=== PATIENT | female | born 1955 | race Caucasian/White ===

== ENCOUNTER → 2018-02-03 | Outpatient (CLI) | payer OTHER | LOC: FIMAGING 15:16 | PROVIDERS: ATTEND Orthopaedic Surgery | DX: Z01.818 Encounter for other preprocedural examination (principal); M17.12 Unilateral primary osteoarthritis, left knee; M25.461 Effusion, right knee ==

== ENCOUNTER 2018-02-10 07:54 | Observation (INO) | payer OTHER ==
[~2018-02-10 07:54] MED LIST: BUPI/epINEPH/KETOROLAC IU ONE; ROPIVACAINE 0.2% 80 MG, EPINEPHrine 0.2 MG, KETOROLAC TROMETHAMINE 30 MG in SYRINGE 0 ML IU ONE; TRANEXAMIC ACID 3,000 MG in NS (SYRINGE) 50 ML IRR ONE
[2018-02-10] MEDS ORDERED: TRANEXAMIC ACID 3,000 MG/50 ML BAG IRR ONE (08:05)
--- NOTE | 2018-02-10 08:16 | PDHPUP ---
History & Physical Update H&P update statement: This history and physical update is based on an assessment of the patient which was completed after admission or registration (within 24 hours), but prior to the surgery/procedure. H&P update: H&P reviewed & patient examined, no change in patient's condition since H&P completed
[2018-02-10] MEDS ORDERED: DEXAMETHASONE 4 MG/ML VIAL IVP ONE (08:35)
[2018-02-10] MEDS ORDERED: FAMOTIDINE 20 MG TAB PO ONE (08:35)
[2018-02-10] MEDS ORDERED: ACETAMINOPHEN 325 MG TAB PO ONE (08:35)
[2018-02-10] MEDS ORDERED: ceFAZolin 2 GM/SWFI 2 GM/20 ML SYR IVP ONE (08:35)
[2018-02-10] MEDS ORDERED: LIDOCAINE 1% 2 ML INJ ID PRN (08:36)
[2018-02-10] MEDS ORDERED: LR 1,000 ML IV ONE (08:36)
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
[2018-02-10] MEDS ORDERED: MIDAZOLAM 2 MG/2 ML VIAL ONE (10:05)
[2018-02-10] MEDS ORDERED: MIDAZOLAM 2 MG/2 ML VIAL IVP ONE (10:10)
[2018-02-10] MEDS ORDERED: VANCOMYCIN 1 GM VIAL ONE (10:13)
[2018-02-10] MEDS ORDERED: PROPOFOL/EMULSION 500 MG/50 ML BOTTLE IV ONE ×2 (10:14→10:51)
[2018-02-10] MEDS ORDERED: fentaNYL 100 MCG/2 ML INJ ONE (10:43)
[2018-02-10] MEDS ORDERED: ONDANSETRON 4 MG/2 ML VIAL IVP PRN ×2 (11:01→11:36)
[2018-02-10] MEDS ORDERED: fentaNYL 100 MCG/2 ML INJ IVP PRN (11:01)
[2018-02-10] MEDS ORDERED: oxyCODONE IR 5 MG TAB PO PRN ×2 (11:01→11:36)
[2018-02-10] MEDS ORDERED: PROMETHAZINE HCL 25 MG/ML INJ IVP PRN ×2 (11:01→11:36)
[2018-02-10] MEDS ORDERED: LABETALOL HCL 5 MG/ML 20 ML MDV IVP PRN (11:01)
[2018-02-10] MEDS ORDERED: PHENYLEPHRINE HCL 100 MCG/ML SYR IVP PRN (11:01)
[2018-02-10] MEDS ORDERED: HYDROmorphONE/DILAUDID 1 MG/ML INJ IVP PRN (11:01)
[2018-02-10] MEDS ORDERED: ACETAMINOPHEN 500 MG TAB PO PRN (11:01)
[2018-02-10] MEDS ORDERED: NALOXONE HCL 0.4 MG/ML INJ IVP PRN (11:01)
[2018-02-10] MEDS ORDERED: LR 500 ML IV PRN (11:01)
[2018-02-10] MEDS ORDERED: ROPIVACAINE HCL 150 MG/30 ML INJ ONE (11:03)
[2018-02-10] MEDS ORDERED: ONDANSETRON 4 MG/2 ML VIAL ONE (11:03)
[2018-02-10] MEDS ORDERED: CYCLOBENZAPRINE 10 MG TAB PO PRN (11:36)
[2018-02-10] MEDS ORDERED: LACTULOSE 20 GM/30 ML UDCUP PO PRN (11:36)
[2018-02-10] MEDS ORDERED: METOCLOPRAMIDE 10 MG/2 ML VIAL IVP PRN (11:36)
[2018-02-10] MEDS ORDERED: PROMETHAZINE HCL 25 MG SUPPR PR PRN (11:36)
[2018-02-10] MEDS ORDERED: ONDANSETRON DISINTEGRATING 4 MG TAB PO PRN (11:36)
[2018-02-10] MEDS ORDERED: TEMAZEPAM 15 MG CAP PO PRN (11:36)
[2018-02-10] MEDS ORDERED: MAGNESIUM HYDROXIDE 30 ML UDCUP PO PRN (11:36)
[2018-02-10] MEDS ORDERED: BISACODYL 10 MG SUPP PR PRN (11:36)
[2018-02-10] MEDS ORDERED: DIPHENOXYLATE/ATROPINE LOMOTIL 1 TAB PO PRN (11:36)
[2018-02-10] MEDS ORDERED: diphenhydrAMINE 25 MG CAP PO PRN (11:36)
[2018-02-10] MEDS ORDERED: POLYETHYLENE GLYCOL 3350 17 GM PKT PO PRN (11:36)
--- NOTE | 2018-02-10 11:36 | POSTOPPROG ---
Post Op Note Date of Operation: 02/10/18 Surgeon: Cezar Solano Land Commissioner: irish solano Anesthesiologist: dr. denney Anesthesia: Spinal, Other (Specify) (adductor canal block) Pre-op Diagnosis: right knee medial OA Post-op Diagnosis: same Indication: right knee pain Procedure: R med mPL Findings: severe medial knee OA Inf/Abcess present in the surg proc area at time of surgery?: No EBL: 50-100
[2018-02-10] MEDS ORDERED: LR 1,000 ML IV SCH (12:00)
[2018-02-10] MEDS ORDERED: ACETAMINOPHEN 500 MG TAB ONE (12:27)
[2018-02-10] MEDS ORDERED: ceFAZolin 2 GM/DEXTROSE 100 ML IV SCH (14:00)
[2018-02-10] MEDS: ACETAMINOPHEN 325 MG TAB PO SCH ×3 (16:17→23:53)
--- NOTE | 2018-02-10 16:35 | POSTANESTH ---
Post Anesthetic Evaluation Cardiovascular Status: Normal, Stable, Similar to Pre-Op Cond Respiratory Status: Normal, Stable, Similar to Pre-op Cond. Level of Consciousness/Mental Status: Can Participate in Eval, Alert and Oriented Pain Control: Adequate, Prn Tx Ordered Nausea/Vomiting Control: Adequate, Prn Tx Ordered Complications Possibly Related to Anesthesia: None Noted
[2018-02-10] MEDS: ceFAZolin 2 GM/SWFI 2 GM/20 ML SYR IVP SCH (17:07)
[2018-02-10 19:54] VITALS: RESP 16
[2018-02-10] MEDS: ASPIRIN 81 MG CHEWABLE TAB PO SCH (20:44)
[2018-02-10] MEDS: SENNOSIDES/DOCUSATE SODIUM TAB PO SCH (20:44)
[2018-02-10] MEDS: FAMOTIDINE 20 MG TAB PO SCH (20:44)
[2018-02-11] MEDS: ceFAZolin 2 GM/SWFI 2 GM/20 ML SYR IVP SCH (02:44)
[2018-02-11] MEDS: ACETAMINOPHEN 325 MG TAB PO SCH (05:06)
[2018-02-11 07:27] VITALS: BP 128/64; PULSE 68; TEMP 98; O2SAT 96
[2018-02-11] MEDS: ASPIRIN 81 MG CHEWABLE TAB PO SCH (07:48)
[2018-02-11] MEDS: FAMOTIDINE 20 MG TAB PO SCH (07:48)
[2018-02-11] MEDS: SENNOSIDES/DOCUSATE SODIUM TAB PO SCH (07:49)
--- NOTE | 2018-02-11 14:11 | GOP ---
[f rep st] OPERATIVE REPORT DATE OF OPERATION: 02/10/2018 SURGEON: Kathy Ponce MD MASK FORMER: JUAN Jnoes ANESTHESIA: Spinal. PREOPERATIVE DIAGNOSIS: Right knee osteoarthritis. POSTOPERATIVE DIAGNOSIS: Right knee osteoarthritis. PROCEDURE PERFORMED: right medial compartment partial knee replacement with computer navigation and robotic assist. FINDINGS: severe medial OA INDICATIONS: This is a 62-year-old female with progressive pain of the right knee unresponsive to conservative care. Risks and benefits of surgical intervention were explained in detail. DESCRIPTION OF PROCEDURE: The patient was brought to the operating room and placed on the table in supine position. Spinal anesthesia was induced without difficulty. A pneumatic tourniquet was applied about the right proximal thigh and the leg was prepped and draped in sterile fashion. Attention was turned first to the distal aspect of the right femur. At 3 cm proximal to the lateral rise of the femur, 2 percutaneous half pins were placed for fixation of the femoral array. In a similar fashion, 2 pins were placed anterolateral on the tibia for fixation of the tibial array. External land marking and registration of the hip center was performed without difficulty. After exsanguination by elevation, the tourniquet was inflated to 250 mmHg. Incision was made from the tibial tuberosity to the superior pole of the patella. Dissection was carried out through the subcutaneous tissue to the deep fascia using Bovie electrocautery for hemostasis. Medial parapatellar arthrotomy was carried out to the superior pole of the patella. The medial collateral ligament was elevated and the infrapatellar fat pad was resected. Internal femoral and tibial registration was carried out without difficulty and the femoral and tibial checkpoints were placed and verified for accuracy. Attention was turned to the femur. The foot print for the size 5 femoral component was cut with the 6 mm bur using the [employer] robotic system and verified for accuracy against the CT based plan. The hole was cut for the femoral post. In a similar fashion, the 6 mm bur was used to cut the foot print for the size 5 tibial component using the [employer] system and verified for accuracy against the CT based plan. Attention was turned to the posterior aspect of the knee and remnants of the medial meniscus were excised. The posterior capsule was injected with ropivacaine, epinephrine and Toradol. Trial reduction was carried out and there was excellent range of motion, alignment and stability using the size 5 femoral component and the size 5 tibial component, 5 x 8 mm polyethylene. All trials were then removed. The joint was thoroughly irrigated and carefully dried. One package of cement and 1 gram of vancomycin were mixed in the vacuum mixer and placed on the fixation surfaces of all components. The components were implanted and all excess cement was thoroughly removed. Implant placement was verified against the CT view plan and found to be excellent. The tourniquet was deflated and all bleeders were coagulated. The wound was thoroughly irrigated and closed using interrupted sutures of 2-0 Vicryl for the joint capsule. The subcu was closed with 3-0 Vicryl and the skin with 4-0 Monocryl. Dermabond and Steri-Strips were applied, followed by a compressive dressing. The patient was then moved from the operating room to the recovery room in good condition, having tolerated the procedure well. CASE CLASSIFICATION: Clean. /[id number]/MODL MTDD
--- NOTE | 2018-02-11 16:37 | SOAPPROG ---
SOAP Progress Note Assessment/Plan: Assessment: Patient is doing well POD 1 s/p R med MPL Pain management: pain is well controlled on oral pain meds. VTE ppx: recommend aspirin 81 mg BID for 4 weeks, cont KARMA and SCDs Anemia: level is expected initially postop. Asymptomatic. Continue to monitor D/c planning: d/c to home today pending release from PT Plan: 02/11/18 16:36 Subjective: denies chest pain and N/V. SOB Objective: Vital Signs Temp Pulse Resp BP Pulse Ox 36.7 C 68 16 128/64 H 96 02/11/18 07:25 02/11/18 07:25 02/11/18 07:25 02/11/18 07:25 02/11/18 07:25 Laboratory Results 02/11/18 05:03 02/10/18 02/11/18 02/12/18 05:59 05:59 05:59 Intake Total 3910 400 Output Total 2860 Balance 1050 400 RLE: incision dresing is clean and dry, NVI, +pf/df ICD10 Worksheet Patient Problems: Problems Problem Status Onset Primary localized osteoarthritis of right knee Acute
--- NOTE | 2018-02-11 17:47 | GDS ---
[f rep st] DISCHARGE SUMMARY ADMISSION DIAGNOSIS: Right knee osteoarthritis. DISCHARGE DIAGNOSIS: Right knee osteoarthritis. PROCEDURE: Right partial knee arthoplasty, medial compartment; robot assisted. VTE PROPHYLAXIS: Recommend aspirin twice daily for 4 weeks. BRIEF DESCRIPTION OF HOSPITAL STAY: Patient was admitted for an elective joint arthroplasty. The pa tient tolerated the procedure well and has passed physical therapy. The patient was given appropriat e antibiotic prophylaxis and venous thromboembolism prophylaxis. The patient's pain was well control led on oral pain medication, patient was holding down food, and had urinated. Decision was made to d ischarge the patient. The patient was given post-operative prescriptions pre-operatively. PLAN: To follow up with Dr. Ponce at [facility] in 2 to 3 weeks. /[id number]/MODL
== END 2018-02-11 11:35 | disposition home or self-care (01) ==
LOC: F3N 07:54
PROVIDERS: ADMIT Orthopaedic Surgery; ATTEND Orthopaedic Surgery
DX: M17.11 Unilateral primary osteoarthritis, right knee (principal); Z87.891 Personal history of nicotine dependence; Z82.49 Family history of ischemic heart disease and other diseases of the circulatory system
CPT/HCPCS: 97110-GP; 97116-GP; 97161-GP; 97165-GO; C1713; G0378; J0171; J0690; J1100; J1885; J2250; J2370; J2405; J2704; J2795; J3010; J3370

== ENCOUNTER → 2018-04-06 | Outpatient (CLI) | payer OTHER | LOC: FIMAGING 13:01 | PROVIDERS: ATTEND Orthopaedic Surgery | DX: M17.12 Unilateral primary osteoarthritis, left knee (principal) ==

== ENCOUNTER 2018-05-05 08:35 | Observation (INO) | payer OTHER ==
[~2018-05-05 08:35] MED LIST changes: -BUPI/epINEPH/KETOROLAC IU ONE; +TRANEXAMIC ACID 3,000 MG/50 ML BAG IRR ONE; +VANCOMYCIN 1 GM VIAL ONE
[2018-05-05] MEDS ORDERED: ACETAMINOPHEN 325 MG TAB PO ONE (10:59)
[2018-05-05] MEDS ORDERED: FAMOTIDINE 20 MG TAB PO ONE (10:59)
[2018-05-05] MEDS ORDERED: DEXAMETHASONE 4 MG/ML VIAL IVP ONE (10:59)
[2018-05-05] MEDS ORDERED: ceFAZolin 2 GM/DEXTROSE 100 ML IV ONE (10:59)
[2018-05-05] MEDS ORDERED: LR 1,000 ML IV ONE (11:00)
[2018-05-05] MEDS ORDERED: MIDAZOLAM 2 MG/2 ML VIAL ONE (13:09)
[2018-05-05] MEDS ORDERED: fentaNYL 100 MCG/2 ML INJ ONE (13:10)
[2018-05-05] MEDS ORDERED: PROPOFOL/EMULSION 500 MG/50 ML BOTTLE IV ONE (13:10)
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
--- NOTE | 2018-05-05 14:34 | POSTOPPROG ---
Post Op Note Date of Operation: 05/05/18 Surgeon: Cezar Solano Caddy Packer: irish solano Anesthesiologist: dr. england Anesthesia: Spinal, Other (Specify) (adductor canal block) Pre-op Diagnosis: left knee OA Post-op Diagnosis: same Indication: left knee pain Procedure: L med partial knee arthroplasty, robot assisted Findings: severe medial knee OA Inf/Abcess present in the surg proc area at time of surgery?: No EBL: 50-100
[2018-05-05] MEDS ORDERED: METOCLOPRAMIDE 10 MG/2 ML VIAL IVP PRN (14:35)
[2018-05-05] MEDS ORDERED: ONDANSETRON 4 MG/2 ML VIAL IVP PRN ×2 (14:35→14:45)
[2018-05-05] MEDS ORDERED: PROMETHAZINE HCL 25 MG SUPPR PR PRN (14:35)
[2018-05-05] MEDS ORDERED: DIPHENOXYLATE/ATROPINE LOMOTIL 1 TAB PO PRN (14:35)
[2018-05-05] MEDS ORDERED: POLYETHYLENE GLYCOL 3350 17 GM PKT PO PRN (14:35)
[2018-05-05] MEDS ORDERED: CYCLOBENZAPRINE 10 MG TAB PO PRN (14:35)
[2018-05-05] MEDS ORDERED: MAGNESIUM HYDROXIDE 30 ML UDCUP PO PRN (14:35)
[2018-05-05] MEDS ORDERED: oxyCODONE IR 5 MG TAB PO PRN (14:35)
[2018-05-05] MEDS ORDERED: ONDANSETRON DISINTEGRATING 4 MG TAB PO PRN (14:35)
[2018-05-05] MEDS ORDERED: PROMETHAZINE HCL 25 MG/ML INJ IVP PRN (14:35)
[2018-05-05] MEDS ORDERED: LACTULOSE 20 GM/30 ML UDCUP PO PRN (14:35)
[2018-05-05] MEDS ORDERED: TEMAZEPAM 15 MG CAP PO PRN (14:35)
[2018-05-05] MEDS ORDERED: diphenhydrAMINE 25 MG CAP PO PRN (14:35)
[2018-05-05] MEDS ORDERED: BISACODYL 10 MG SUPP PR PRN (14:35)
[2018-05-05] MEDS ORDERED: fentaNYL 100 MCG/2 ML INJ IVP PRN (14:45)
[2018-05-05] MEDS ORDERED: NALOXONE HCL 0.4 MG/ML INJ IVP PRN (14:45)
[2018-05-05] MEDS ORDERED: PHENYLEPHRINE HCL 100 MCG/ML SYR IVP PRN (14:45)
[2018-05-05] MEDS ORDERED: LR 500 ML IV PRN (14:45)
--- NOTE | 2018-05-05 14:47 | POSTANESTH ---
Post Anesthetic Evaluation Cardiovascular Status: Normal, Stable Respiratory Status: Normal, Stable Level of Consciousness/Mental Status: Can Participate in Eval Pain Control: Adequate, Prn Tx Ordered Nausea/Vomiting Control: Adequate, Prn Tx Ordered Complications Possibly Related to Anesthesia: None Noted
[2018-05-05] MEDS ORDERED: LR 1,000 ML IV SCH (15:00)
[2018-05-05] MEDS: ACETAMINOPHEN 325 MG TAB PO SCH (18:22)
--- NOTE | 2018-05-05 20:24 | GOP ---
[f rep st] OPERATIVE REPORT DATE OF OPERATION: 05/05/2018 SURGEON: Kathy Ponce MD NEUROSURGEON: Kathy Ponce MD. SWIMMING POOL SERVICEPERSON: JUAN Jones. ANESTHESIA: Spinal. PREOPERATIVE DIAGNOSIS: Left knee osteoarthritis. POSTOPERATIVE DIAGNOSIS: Left knee osteoarthritis. PROCEDURE PERFORMED: Left medial compartment partial knee replacement with computer navigation and r obotic system, JACQUELINE uni-knee. FINDINGS: Pathology: Severe medial compartment osteoarthritis left knee, left thigh, left femur. ESTIMATED BLOOD LOSS: 30 cc. INDICATIONS: This is a 62-year-old woman with progressive pain of the left knee unresponsive to cons ervative care. Risks and benefits of surgical intervention were explained in detail. DESCRIPTION OF PROCEDURE: The patient was brought to the operating room and placed on the table in s upine position. Spinal anesthesia was induced without difficulty. A pneumatic tourniquet was applie d about the left proximal thigh and the leg was prepped and draped in sterile fashion. Attention was turned first to the distal aspect of the left femur. At 3 cm proximal to the lateral rise of the fe mur, 2 percutaneous half pins were placed for fixation of the femoral array. In a similar fashion, 2 pins were placed anterolateral on the tibia for fixation of the tibial array. External land marking and registration of the hip center was performed without difficulty. After exsanguination by elevation, the tourniquet was inflated. Incision was made from the tibial tuberosity to the superior pole of the patella. Dissection was car ried out through the subcutaneous tissue to the deep fascia using Bovie electrocautery for hemostasis . Medial parapatellar arthrotomy was carried out to the superior pole of the patella. The medial co llateral ligament was elevated and the infrapatellar fat pad was resected. Internal femoral and tibi al registration was carried out without difficulty and the femoral and tibial checkpoints were placed and verified for accuracy. Attention was turned to the femur. The foot print for the size 5 femoral component was cut with the 6 mm bur using the [employer] robotic system and verified for accuracy against the CT based plan. The hole was cut for the femoral post. In a similar fashion, the 6 mm bur was used to cut the foot print for t he size 5 tibial component using the [employer] system and verified for accuracy against the CT based plan. Attention was turned to the posterior aspect of the knee and remnants of the medial meniscus were exc ised. The posterior capsule was injected with ropivacaine, epinephrine and Toradol. Trial reduction was carried out and there was excellent range of motion, alignment and stability using the size 5 fe moral component and the size 5 x 9 polyethylene tibial component. All trials were then removed. The joint was thoroughly irrigated and carefully dried. One package o f cement and 1 gram of vancomycin were mixed in the vacuum mixer and placed on the fixation surfaces of all components. The components were implanted and all excess cement was thoroughly removed. Impla nt placement was verified against the CT view plan and found to be excellent. The tourniquet was deflated and all bleeders were coagulated. The wound was thoroughly irrigated and closed using interrupted sutures of 2-0 Vicryl for the joint capsule. The subcu was closed with 3-0 Vicryl and the skin with 4-0 Monocryl. Dermabond and Steri-Strips were applied, followed by a compr essive dressing. The patient was then moved from the operating room to the recovery room in good con dition, having tolerated the procedure well. CASE CLASSIFICATION: Clean. /[id number]/MODL
[2018-05-05] MEDS: ceFAZolin 2 GM/DEXTROSE 100 ML IV SCH (21:11)
[2018-05-05] MEDS: ASPIRIN 81 MG CHEWABLE TAB PO SCH (21:12)
[2018-05-05] MEDS: FAMOTIDINE 20 MG TAB PO SCH (21:12)
[2018-05-05] MEDS: SENNOSIDES/DOCUSATE SODIUM TAB PO SCH (21:12)
[2018-05-06] MEDS: ACETAMINOPHEN 325 MG TAB PO SCH ×2 (01:13→05:16)
[2018-05-06] MEDS: ceFAZolin 2 GM/DEXTROSE 100 ML IV SCH (04:18)
[2018-05-06 07:21] VITALS: BP 128/69
[2018-05-06] MEDS: SENNOSIDES/DOCUSATE SODIUM TAB PO SCH (08:19)
[2018-05-06] MEDS: FAMOTIDINE 20 MG TAB PO SCH (08:19)
[2018-05-06] MEDS: ASPIRIN 81 MG CHEWABLE TAB PO SCH (08:19)
--- NOTE | 2018-05-06 08:50 | SOAPPROG ---
SOAP Progress Note Assessment/Plan: Assessment: Patient is doing well POD 1 s/p L med MPL Pain management: pain is well controlled on oral pain meds. VTE ppx: recommend aspirin 81 mg BID for 4 weeks, cont KARMA and SCDs Anemia: level is expected initially postop. Asymptomatic. Continue to monitor D/c planning: d/c to home today pending release from PT Plan: 05/06/18 08:49 Subjective: no pain ,denies SOB, chest pain and N/V. Objective: Vital Signs Temp Pulse Resp BP Pulse Ox 36.9 C 63 16 128/69 H 95 05/06/18 07:20 05/06/18 07:20 05/06/18 07:20 05/06/18 07:20 05/06/18 07:20 Laboratory Results 05/06/18 04:58 05/05/18 05/06/18 05/07/18 05:59 05:59 05:59 Intake Total 1200 Output Total 1230 Balance -30 LLE: incision dressing is clean and dry, NVI, +pf/df ICD10 Worksheet Patient Problems: Problems Problem Status Onset Primary localized osteoarthritis of left knee Acute Primary localized osteoarthritis of right knee Acute
--- NOTE | 2018-05-06 15:35 | GDS ---
[f rep st] DISCHARGE SUMMARY ADMISSION DIAGNOSIS: Left knee osteoarthritis. DISCHARGE DIAGNOSIS: Left knee osteoarthritis. PROCEDURE: Left partial knee arthroplasty, medial compartment, robotic assisted, with computer navig ation. VTE PROPHYLAXIS: Recommend aspirin 81 mg for 4 weeks. BRIEF DESCRIPTION OF HOSPITAL STAY: Patient was admitted for an elective joint arthroplasty. The pa nette tolerated the procedure well and has passed physical therapy. The patient was given appropriat e antibiotic prophylaxis and venous thromboembolism prophylaxis. The patient's pain was well control led on oral pain medication, patient was holding down food, and had urinated. Decision was made to d ischarge the patient. The patient was given post-operative prescriptions pre-operatively. PLAN: Follow up as scheduled in Dr. Ponce's office May 24 at 10:30. /[id number]/MODL
== END 2018-05-06 11:39 | disposition home or self-care (01) ==
LOC: F3N 10:50
PROVIDERS: ADMIT Orthopaedic Surgery; ATTEND Orthopaedic Surgery
PROC: 0SRD0J9 Replacement of Left Knee Joint with Synthetic Substitute, Cemented, Open Approach (ICD-10-PCS; principal; 2018-05-05 13:15)
PROC: 8E0YXBZ Computer Assisted Procedure of Lower Extremity (ICD-10-PCS; principal; 2018-05-05 13:15)
DX: M17.12 Unilateral primary osteoarthritis, left knee (principal); D62 Acute posthemorrhagic anemia; Z87.891 Personal history of nicotine dependence; Z96.651 Presence of right artificial knee joint; Z82.49 Family history of ischemic heart disease and other diseases of the circulatory system
CPT/HCPCS: 97116-GP; 97161-GP; C1713; J0171; J0690; J1100; J1885; J2250; J2704; J2795; J3010; J3370